=== PATIENT | female | born 1985 | race Caucasian/White ===

== ENCOUNTER 2017-08-21 10:58 | Emergency (ER) | payer BC, MEDICAID, OTHER ==
--- NOTE | 2017-08-21 11:26 | UC ---
Skin Complaint HPI - HPI Summary HPI Summary: 31 year old female with skin complaint.Pt states similar rash 06/2017 and treated for scabies. Pt states rash re-appeared last night. Pt states rash is on entire body. recently moved and been staying with a friend and only her daughter and her have the rash / bites. no fever. no other acute concerns. [ End ] - History of Current Complaint Time Seen by Provider: 08/21/17 11:25 Stated Complaint: RASH Hx Obtained From: Patient Onset/Duration: Gradual Onset Onset Severity: Moderate Current Severity: Moderate Alleviating Factor(s): OTC Meds, Antihistamines - Allergy/Home Medications Allergies/Adverse Reactions: Allergies Allergy/AdvReac Type Severity Reaction Status Date / Time Adhesive Tape Allergy Rash Verified 08/21/17 11:34 metoclopramide Allergy Anger/Memory Verified 08/21/17 11:34 Loss morphine Allergy Hives Verified 08/21/17 11:34 verapamil Allergy Diarrhea Verified 08/21/17 11:34 Home Medications: Home Medications Levonorgestrel (Iud) [Mirena IUD] 1 applic IU ONCE 08/21/17 [History Confirmed 08/21/17] ValACYclovir (*) [Valtrex 500 mg (*)] 1 tab PO BID PRN 08/21/17 [History Confirmed 08/21/17] Review of Systems Skin: Rash Is Patient Immunocompromised?: No All Other Systems Reviewed And Are Negative: Yes PMH/Surg Hx/FS Hx/Imm Hx Previously Healthy: Yes - Family History Known Family History: Negative: Cardiac Disease - Social History Occupation: Employed Full-time Lives: With Family Substance Use Type: Heroin Substance Use Comment - Amount & Last Used: not used since 2015 Smoking Status (MU): Light Every Day Tobacco Smoker Type: Cigarettes Have You Smoked in the Last Year: Yes Cessation Counseling: Patient Advised to Stop Physical Exam Triage Information Reviewed: Yes Appearance: Well-Appearing, No Pain Distress, Well-Nourished Vital Signs Reviewed: Yes ENT: Positive: Hearing grossly normal Neck: Positive: Supple Respiratory Exam: Normal Cardiovascular Exam: Normal Musculoskeletal Exam: Normal Neurological Exam: Normal Psychological Exam: Normal Skin: Positive: rashes - urticarial rash on the b/l upper extremity. also on the LE. no erythema. no discharge. no streaking. no eechymosis Course/Dx - Course Course Of Treatment: bed bugs? discussed monitoring for infection. to wash linens. patient states not using any drugs. appears coherent - Differential Diagnoses - Skin Complaint Differential Diagnoses: Contact Dermatitis, Impetigo, Local Allergic Reaction, Scabies - Diagnoses Provider Diagnoses: insect bites Discharge - Sign-Out/Discharge Documenting (check all that apply): Discharge - Discharge Plan Condition: Good Disposition: HOME Prescriptions: methylPREDNISolone [Medrol Dosepak 4 MG*] 0 mg PO .SEE EFRA INSTRUCTION #1 tab Patient Education Materials: Insect Bite or Sting (ED) Referrals: No Primary Care Phys,NOPCP [Primary Care Provider] - 3 Days - Billing Disposition and Condition Condition: GOOD Disposition: HOME
[2017-08-21 11:41] VITALS: BP 120/78
== END 2017-08-21 12:20 | disposition home or self-care (01) ==
LOC: UCCORT 10:58
DX: S40.862A Insect bite (nonvenomous) of left upper arm, initial encounter (principal); S40.861A Insect bite (nonvenomous) of right upper arm, initial encounter; S80.869A Insect bite (nonvenomous), unspecified lower leg, initial encounter; W57.XXXA Bitten or stung by nonvenomous insect and other nonvenomous arthropods, initial encounter; Y93.9 Activity, unspecified; Y92.009 Unspecified place in unspecified non-institutional (private) residence as the place of occurrence of the external cause; Z88.5 Allergy status to narcotic agent; Z88.8 Allergy status to other drugs, medicaments and biological substances; Z91.048 Other nonmedicinal substance allergy status; F17.210 Nicotine dependence, cigarettes, uncomplicated
CPT/HCPCS: 99202; G0463

== ENCOUNTER 2017-09-05 12:19 | Emergency (ER) | payer OTHER ==
[2017-09-05 13:54] VITALS: BP 122/62
--- NOTE | 2017-09-05 14:24 | UC ---
Skin Complaint HPI - HPI Summary HPI Summary: Patient has 1 week of worsening pain redness and tenderness in her left nipple. Does have a small abrasion / irritation on her nipple. She is currently breast-feeding. Patient has a history of MRSA - History of Current Complaint Chief Complaint: UCSkin Time Seen by Provider: 09/05/17 14:14 Stated Complaint: SKIN COMPLAINT Hx Obtained From: Patient Hx Last Menstrual Period: "Spotting now" ?: No Onset/Duration: Sudden Onset, Lasting Days - 7, Worse Since - getting worse daily Timing: Constant Onset Severity: Moderate Current Severity: Moderate Pain Intensity: 4 Pain Scale Used: 0-10 Numeric Location: Discrete - left nipple Character: Pain, Redness Aggravating Factor(s): Touch Alleviating Factor(s): Nothing Associated Signs & Symptoms: Positive: Tenderness - Allergy/Home Medications Allergies/Adverse Reactions: Allergies Allergy/AdvReac Type Severity Reaction Status Date / Time Adhesive Tape Allergy Rash Verified 09/05/17 13:49 metoclopramide Allergy Anger/Memory Verified 09/05/17 13:49 Loss morphine Allergy Hives Verified 09/05/17 13:49 verapamil Allergy Diarrhea Verified 09/05/17 13:49 Review of Systems Constitutional: Negative Skin: Rash - left nipple irratation Eyes: Negative ENT: Negative Respiratory: Negative Cardiovascular: Negative Gastrointestinal: Negative Genitourinary: Negative Motor: Negative Neurovascular: Negative Musculoskeletal: Negative, Other: - left breast painful and tender---no erythema or streaking Neurological: Negative Psychological: Negative Is Patient Immunocompromised?: No All Other Systems Reviewed And Are Negative: Yes PMH/Surg Hx/FS Hx/Imm Hx Previously Healthy: Yes - Surgical History Surgical History: Yes Surgery Procedure, Year, and Place: C-Secton; ENT; Appy; Right Hand Tendon Reconstruction - Family History Known Family History: Negative: Cardiac Disease - Social History Occupation: Employed Full-time Lives: With Family Alcohol Use: None Substance Use Type: None Substance Use Comment - Amount & Last Used: not used since 2015 Smoking Status (MU): Light Every Day Tobacco Smoker Type: Cigarettes Amount Used/How Often: 1/4 PPD Length of Time of Smoking/Using Tobacco: Since Age 9 Have You Smoked in the Last Year: Yes Physical Exam Triage Information Reviewed: Yes Appearance: Well-Appearing, No Pain Distress, Well-Nourished Vital Signs: Initial Vital Signs Temp 98 F 09/05/17 13:47 Pulse 84 09/05/17 13:47 Resp 16 09/05/17 13:47 BP 122/62 09/05/17 13:47 Pulse Ox 100 09/05/17 13:47 Vital Signs Reviewed: Yes Eye Exam: Normal Eyes: Positive: Conjunctiva Clear ENT Exam: Normal ENT: Positive: Normal ENT inspection, Hearing grossly normal, Pharynx normal, TMs normal. Negative: Nasal congestion, Tonsillar swelling, Tonsillar exudate, Trismus, Muffled voice, Hoarse voice, Dental tenderness, Sinus tenderness Dental Exam: Normal Neck exam: Normal Neck: Positive: Supple, Nontender, No Lymphadenopathy Respiratory Exam: Normal Respiratory: Positive: Chest non-tender, Lungs clear, Normal breath sounds, No respiratory distress, No accessory muscle use Cardiovascular Exam: Normal Cardiovascular: Positive: RRR, No Murmur, Pulses Normal, Brisk Capillary Refill Musculoskeletal Exam: Normal Musculoskeletal: Positive: Strength Intact, ROM Intact, No Edema Neurological Exam: Normal Neurological: Positive: Alert, Muscle Tone Normal Psychological Exam: Normal Skin Exam: Other Skin: Positive: Other - left nipple pain and irratated skin Course/Dx - Course Course Of Treatment: Plan will be to start patient on doxycycline patient advised she cannot breast-feed while on this medication and for several days afterward patient verbalizes understanding. Patient states she will be discontinuing breast-feeding is the child's a year plus now anyway. Patient will continue to use warm compresses 15 minutes every 1-2 hours patient will follow up with surgeon this week and go to the emergency department should anything acutely change - Diagnoses Provider Diagnoses: Cellulitis left nipple left breast Discharge - Sign-Out/Discharge Documenting (check all that apply): Discharge - Discharge Plan Condition: Stable Disposition: HOME Prescriptions: DOXYcycline CAP(*) [DOXYcycline 100MG CAP(*)] 100 mg PO BID #20 cap Patient Education Materials: Abscess (ED), Warm Compress or Soak (ED) Forms: *Work Release Referrals: Litzy Pinto MD [Medical Doctor] - 3 Days Additional Instructions: Use warm compresses to the breast every hour or 2 for 15 minutes at a time. Do not breast feed or use the breast milk while on the antibiotic. Follow up with Dr. Pinto this week and call and ask for an appointment in the [place] office - Billing Disposition and Condition Condition: STABLE Disposition: HOME
== END 2017-09-05 14:33 | disposition home or self-care (01) ==
LOC: UCCORT 12:19
DX: N61.0 Mastitis without abscess (principal); F17.210 Nicotine dependence, cigarettes, uncomplicated; Z86.14 Personal history of Methicillin resistant Staphylococcus aureus infection; Z88.5 Allergy status to narcotic agent; Z88.8 Allergy status to other drugs, medicaments and biological substances
CPT/HCPCS: 99212; G0463

== ENCOUNTER 2018-01-09 17:09 | Emergency (ER) | payer OTHER ==
[2018-01-09 17:39] VITALS: BP 134/75
--- NOTE | 2018-01-09 18:14 | UC ---
Rectal Pain HPI - HPI Summary HPI Summary: C/O rectal itching since last night with constipation today. [place] like something crawling on the anus. Recent URI. Hoarse voice with cough - History Of Current Complaint Chief Complaint: UCGeneralIllness Stated Complaint: SKIN ISSUE Hx Obtained From: Patient Hx Last Menstrual Period: 01/07/18-IUD ?: No Onset/Duration: Sudden Onset, Lasting Days - 1 Severity Initially: Mild Severity Currently: Mild Pain Intensity: 0 Location Of Pain: (No Pain), Anal - itching Character: Itching Aggravating Factor(s): Bowel Movement Associated Signs And Symptoms: Positive: Constipation, Other - some tenismus Related History: Other - Home cat with worms. - Allergies/Home Medications Allergies/Adverse Reactions: Allergies Allergy/AdvReac Type Severity Reaction Status Date / Time Adhesive Tape Allergy Rash Verified 01/09/18 17:34 metoclopramide Allergy Anger/Memory Verified 01/09/18 17:34 Loss morphine Allergy Hives Verified 01/09/18 17:34 verapamil Allergy Diarrhea Verified 01/09/18 17:34 PMH/Surg Hx/FS Hx/Imm Hx Previously Healthy: Yes - Surgical History Surgical History: Yes Surgery Procedure, Year, and Place: C-Secton; ENT; Appy; Right Hand Tendon Reconstruction - Family History Known Family History: Positive: Hypertension, Diabetes Negative: Cardiac Disease - Social History Occupation: Employed Full-time Lives: With Family Alcohol Use: None Substance Use Type: None Substance Use Comment - Amount & Last Used: not used since 2015 Smoking Status (MU): Light Every Day Tobacco Smoker Type: Cigarettes Amount Used/How Often: 1/2 PPD Length of Time of Smoking/Using Tobacco: Since Age 9 Have You Smoked in the Last Year: Yes Cessation Counseling: Patient Advised to Stop - Immunization History Most Recent Tetanus Shot: UTD Review of Systems Respiratory: Cough Gastrointestinal: Abdominal Pain Is Patient Immunocompromised?: No All Other Systems Reviewed And Are Negative: Yes Physical Exam Triage Information Reviewed: Yes Appearance: Well-Appearing, No Pain Distress, Obese Vital Signs: Initial Vital Signs Temp 97.6 F 01/09/18 17:34 Pulse 86 01/09/18 17:34 Resp 16 01/09/18 17:34 BP 134/75 01/09/18 17:34 Pulse Ox 99 01/09/18 17:34 Vital Signs Reviewed: Yes Eyes: Positive: Conjunctiva Clear ENT: Positive: Pharynx normal, TMs normal Neck exam: Normal Respiratory Exam: Normal Cardiovascular Exam: Normal Abdomen Description: Positive: No Organomegaly. Negative: Nontender - mild tenderness epigastric/ suprapubic and LLQ, McBurney's Point Tenderness, Peritoneal Signs Bowel Sounds: Positive: Present Musculoskeletal Exam: Normal Neurological Exam: Normal Psychological Exam: Normal Skin Exam: Normal Rectal Pain Course/Dx - Differential Dx/Diagnosis Differential Diagnosis/HQI/PQRI: Hemorrhoid(s), Pilonial Cyst, Pruritis Ani Provider Diagnoses: Pruritis ani. URI Discharge - Sign-Out/Discharge Documenting (check all that apply): Patient Departure - Discharge Plan Condition: Stable Disposition: HOME Patient Education Materials: Pinworm Infection (ED), Gas and Bloating (ED), Abdominal Pain (ED) Referrals: No Primary Care Phys,NOPCP [Primary Care Provider] - Additional Instructions: Smoking Cessation Tricks. 1. Cut down by 1 cigarette per day every 2-3 days. Write the number of smokes for that day on the calendar. 2. Identify triggers to smoking: after meals, on the phone, in the car, with coffee, on breaks at work, etc. 3. Formulate a plan with a behavior to replace the smoking. Fireballs in the car , doodle pad on the phone, flavored creamer for the coffee, go for a walk after a meal or on break at work. 4. For stress smokes do deep breathing relaxation. Breath deep in through the nose hold the breath in for a few seconds then breath out slowly through the mouth. Please place cellophane tape over the anus at bedtime and remove in the morning and put in the specimen cup. - Billing Disposition and Condition Condition: STABLE Disposition: Home
== END 2018-01-09 18:55 | disposition home or self-care (01) ==
LOC: UCCORT 17:09
DX: L29.0 Pruritus ani (principal); J06.9 Acute upper respiratory infection, unspecified; Z88.8 Allergy status to other drugs, medicaments and biological substances; Z88.5 Allergy status to narcotic agent; F17.210 Nicotine dependence, cigarettes, uncomplicated
CPT/HCPCS: 87172; 99211; G0463

== ENCOUNTER 2018-05-16 07:44 | Emergency (ER) | payer OTHER ==
[2018-05-16 08:12] VITALS: BP 140/77
--- NOTE | 2018-05-16 08:16 | UC ---
Lower Extremity/Ankle HPI - HPI Summary HPI Summary: pt with right LE edema and discomfort right ankle. Pain started medial ankle 1 week ago - no memory injury. improved pain with motrin, worse with walking. pt with chronic paresthesia. no erythema, fever. no knee, hip pain + limping Pt's medications reviewed this visit - History of Current Complaint Chief Complaint: UCLowerExtremity Stated Complaint: RIGHT LEG COMPLAINT Time Seen by Provider: 05/16/18 08:15 Hx Obtained From: Patient Hx Last Menstrual Period: 05/02/18 Onset/Duration: Gradual Onset Pain Intensity: 3 - Allergies/Home Medications Allergies/Adverse Reactions: Allergies Allergy/AdvReac Type Severity Reaction Status Date / Time Adhesive Tape Allergy Rash Verified 05/16/18 08:02 metoclopramide Allergy Anger/Memory Verified 05/16/18 08:02 Loss morphine Allergy Hives Verified 05/16/18 08:02 verapamil Allergy Diarrhea Verified 05/16/18 08:02 Home Medications: Home Medications Lurasidone(*) [Latuda] 40 mg PO DAILY 05/16/18 [History Confirmed 05/16/18] Varenicline (NF) [Chantix 1 MG TAB (NF)] 1 mg PO BID 05/16/18 [History Confirmed 05/16/18] traZODone TAB* [Desyrel TAB*] 50 mg PO BEDTIME 05/16/18 [History Confirmed 05/16] PMH/Surg Hx/FS Hx/Imm Hx Previously Healthy: Yes - Surgical History Surgical History: Yes Surgery Procedure, Year, and Place: C-Secton; ENT; Appy; Right Hand Tendon Reconstruction - Family History Known Family History: Positive: Hypertension, Diabetes, Non-Contributory Negative: Cardiac Disease - Social History Occupation: Employed Full-time Lives: With Family Alcohol Use: None Substance Use Type: None Substance Use Comment - Amount & Last Used: not used since 2015 Smoking Status (MU): Light Every Day Tobacco Smoker Type: Cigarettes Amount Used/How Often: 5 CIGS PER DAY Length of Time of Smoking/Using Tobacco: Since Age 9 Have You Smoked in the Last Year: Yes - Immunization History Most Recent Tetanus Shot: UTD Review of Systems All Other Systems Reviewed And Are Negative: Yes Skin: Positive: Negative Musculoskeletal: Positive: Other: - left ankle Physical Exam - Summary Physical Exam Summary: Vital Signs Reviewed: Yes A+Ox3, no distress Eyes: Conjunctiva Clear ENT: Hearing grossly normal Neck: Positive: Supple Respiratory: Positive: No respiratory distress, No accessory muscle use Cardiovascular: 2+ DP, PT CBT< 2 sec Musculoskeletal Exam: + SLE + flex/ext knee, ankle discomfort medial left ankle with direct palp inferior, anterior malleolus mild discomfort right distal calf mild edema, no open wound, no tense Neurological: Positive: Alert, + sensation throughout Psychological: Positive: Normal Response To Family Skin: Positive: no rash, no ecchymosis Triage Information Reviewed: Yes Vital Signs: Initial Vital Signs Temp 98.7 F 05/16/18 08:04 Pulse 72 05/16/18 08:04 Resp 16 05/16/18 08:04 BP 140/77 05/16/18 08:04 Pulse Ox 98 05/16/18 08:04 Diagnostics - Radiology No standard instances Radiology Interpretation Completed By: Radiologist - Patient Name: ISAIAH MORENO Medical Record#: [id number] Ordering Physician: Casie Simmons MD Acct.#: [id number] : 1985 Age: 32 Sex: F Location: [facility] Exam Date: 05/16/1817 ADM Status: REG ER Order Information: VL LOWER EXT VEINS RIGHT Accession Number: [id number] CPT: 79236 HISTORY: leg swelling, discoloration COMPARISONS : None relevant TECHNIQUE: Multiple transverse and longitudinal ultrasound images were obtained of the right lower extremity from the level of the common femoral vein inferiorly through to the infrapopliteal veins using grayscale, color Doppler, and spectral Doppler imaging with and without compression and with augmentation. Comparison images were obtained of the contralateral common femoral vein. FINDINGS: VEINS: The venous system of the right lower extremity is compressible throughout its course, with normal flow on color Doppler imaging and normal response to augmentation on spectral Doppler imaging. SOFT TISSUES: Unremarkable. OTHER FINDINGS: None. IMPRESSION: NO RIGHT LOWER EXTREMITY DEEP VEIN THROMBOSIS Patient Name: ISAIAH MORENO Medical Record#: [id number] Ordering Physician: Casie Simmons MD Acct.#: [id number] : 1985 Age: 32 Sex: F Location: [facility] Exam Date: 05/16/18 0902 ADM Status: REG ER Order Information: ANKLE RIGHT 3+VWS Accession Number: [id number] CPT: 42440 Indication: Right ankle pain. 3 views of the right ankle demonstrates no fracture or dislocation. Ankle mortise is intact. No other bone or joint abnormality is identified. IMPRESSION: No fracture of the right ankle is noted. < Electronically signed by Sandy Thomas MD in OV> 05/16/18917 Dictated By: Sandy Thomas MD Dictated Date/Time: 05/16/18917 Transcribed Date/Time: 05/16/18916 Copy to: CC:Casie Simmons MD; No Primary Care Phys,[facility] [address] [place] [address] ph ([phone]) ph ([phone]) ph ([phone]) This report is only to be considered final once signed by the Provider(s) as displayed in the "<Electronically Signed by >" field (s). Absence of a signature indicates the report is in a draft status and still needs to be finalized. In the event this document was created by someone other than the signing Provider, the individual initiating the document will be listed in the "Entered by:" or "Dictated by:" delgadillo. 1 of 1 <Electronically signed by Ruiz Ku MD in OV> 05/16/18840 Dictated By: Ruiz Ku MD Dictated Date/Time: 05/16 Transcribed Date/Time: 05/16/18840 Copy to: CC:Casie Simmons MD; No Primary Care Phys,[facility] [address] [place] [id number] [place], [place] [id number] [place] [address] ph ) ph ([phone]) ph ([phone]) This report is only to be considered final once signed by the Provider(s) as displayed in the "< Electronically Signed by >" field (s). Absence of a signature indicates the report is in a draft status and still needs to be finalized. In the event this document was created by someone other than the signing Provider, the individual initiating the document will be listed in the "Entered by:" or "Dictated by:" delgadillo. 1 of 1 Lower Extremity Course/Dx - Course Course Of Treatment: Pt wth left ankle pain x 1 week not with extension to left distal calf no crepitus + limp pain improves with motrin. will check US for DVT, imaging. if neg, splint, oriana. crutches. elevate. sports med f.u. return precautions. slight elevated BP - recommend f/u with pcp - Differential Dx/Diagnosis Provider Diagnosis: Right ankle sprain Discharge - Sign-Out/Discharge Documenting (check all that apply): Patient Departure All imaging exams completed and their final reports reviewed: Yes - Discharge Plan Condition: Stable Disposition: HOME Patient Education Materials: Ankle Sprain (ED), Crutch Instructions (ED) Forms: *Work Release Referrals: [facility] [Provider Group] No Primary Care Phys,NOPCP [Primary Care Provider] - Additional Instructions: -wear oriana wrap for comfort and support -apply ice (20 min at a time) every 2-3 hours for the next 2 days -use crutches until you can walk normally without a limp -Elevate your leg - this will help with swelling and pain - Alternate ibuprofen (advil, Motrin) 600mg and tylenol every 3 hours for pain. Take with food. Do NOT take for more than 4-5 days -Contact the sports medicine office today to arrange a follow-up appointment later this week. Contact your doctor or return with questions or concerns - Billing Disposition and Condition Condition: STABLE Disposition: Home
== END 2018-05-16 09:27 | disposition home or self-care (01) ==
LOC: UCCORT 07:44
DX: S93.401A Sprain of unspecified ligament of right ankle, initial encounter (principal); X58.XXXA Exposure to other specified factors, initial encounter; Y92.9 Unspecified place or not applicable; Y99.9 Unspecified external cause status; Z88.8 Allergy status to other drugs, medicaments and biological substances; Z88.5 Allergy status to narcotic agent; F17.210 Nicotine dependence, cigarettes, uncomplicated
CPT/HCPCS: 99213; G0463

== ENCOUNTER 2018-12-26 12:27 | Emergency (ER) | payer OTHER ==
[2018-12-26 13:30] VITALS: BP 117/104
--- NOTE | 2018-12-26 13:51 | UC ---
UC General HPI - HPI Summary HPI Summary: per triage,Pt had a cough last night, this morning pt woke up with a fever, sore throat, and white area on the back of her throat. [ End ] daughter sick with cold symptoms and a sore throat. - History of Current Complaint Chief Complaint: UCGeneralIllness Stated Complaint: ST Time Seen by Provider: 12/26/18 13:42 Hx Obtained From: Patient Hx Last Menstrual Period: depo Onset/Duration: Gradual Onset Timing: Constant Pain Intensity: 5 Associated Signs & Symptoms: Negative: Chest Pain, SOB - Allergy/Home Medications Allergies/Adverse Reactions: Allergies Allergy/AdvReac Type Severity Reaction Status Date / Time Adhesive Tape Allergy Rash Verified 12/26/18 13:30 metoclopramide Allergy Anger/Memory Verified 12/26/18 13:30 Loss morphine Allergy Hives Verified 12/26/18 13:30 verapamil Allergy Diarrhea Verified 12/26/18 13:30 Home Medications: Home Medications Atorvastatin* [Lipitor 10 MG*] 1 tab PO DAILY 12/26/18 [History Confirmed ] SUMAtriptan TAB* [Imitrex TAB*] 1 tab PO DAILY 12/26/18 [History Confirmed 12/26] Topiramate TAB(*) [Topamax 100 mg tab] 1 tab PO BID 12/26/18 [History Confirmed 12/26/18] PMH/Surg Hx/FS Hx/Imm Hx Endocrine History: Dyslipidemia Neurological History: Migraine - Surgical History Surgical History: Yes Surgery Procedure, Year, and Place: C-Secton; ENT; Appy; Right Hand Tendon Reconstruction - Family History Known Family History: Positive: Hypertension, Diabetes, Non-Contributory Negative: Cardiac Disease - Social History Lives: With Family Alcohol Use: None Substance Use Type: None Substance Use Comment - Amount & Last Used: not used since 2016 Smoking Status (MU): Light Every Day Tobacco Smoker Type: Cigarettes Amount Used/How Often: 1/2 ppd Length of Time of Smoking/Using Tobacco: Since Age 9 Have You Smoked in the Last Year: Yes - Immunization History Most Recent Tetanus Shot: UTD Review of Systems All Other Systems Reviewed And Are Negative: Yes ENT: Positive: Sore Throat, Sinus Congestion Respiratory: Positive: Cough Physical Exam Triage Information Reviewed: Yes Appearance: Well-Appearing Vital Signs: Initial Vital Signs Temp 99.2 F 12/26/18 13:25 Pulse 88 12/26/18 13:25 Resp 16 12/26/18 13:25 BP 117/104 12/26/18 13:25 Pulse Ox 98 12/26/18 13:25 Vital Signs Reviewed: Yes Eyes: Positive: Conjunctiva Clear ENT: Positive: Pharyngeal erythema - slight, Nasal congestion, TMs normal, Uvula midline. Negative: Nasal drainage, Tonsillar swelling, Tonsillar exudate , Trismus, Muffled voice, Hoarse voice Neck: Positive: Supple, Tenderness @ - peritonsil, Enlarged Nodes @ - peritonsilar Respiratory: Positive: Lungs clear, Normal breath sounds, No respiratory distress Cardiovascular: Positive: RRR, No Murmur Abdomen Description: Positive: Nontender Musculoskeletal: Positive: ROM Intact Neurological: Positive: Alert Psychological: Positive: Age Appropriate Behavior Skin Exam: Normal Skin: Negative: Rashes Diagnostics - Laboratory Lab Results: rapid strep=negative Course/Dx - Differential Dx - Multi-Symptom Differential Diagnoses: Other - rapid strep=neg, antibiotics not indicated. - Diagnoses Provider Diagnosis: URI (upper respiratory infection), Pharyngitis Discharge - Sign-Out/Discharge Documenting (check all that apply): Patient Departure All imaging exams completed and their final reports reviewed: No Studies - Discharge Plan Condition: Stable Disposition: HOME Patient Education Materials: Upper Respiratory Infection (DC), Pharyngitis (ED) Referrals: Keron Siu MD [Primary Care Provider] - Additional Instructions: FOLLOW UP IF NOT BETTER IN 5-7 DAYS OR SOONER IF WORSE. - Billing Disposition and Condition Condition: STABLE Disposition: Home
== END 2018-12-26 14:15 | disposition home or self-care (01) ==
LOC: UCCORT 12:27
DX: J06.9 Acute upper respiratory infection, unspecified (principal); J02.9 Acute pharyngitis, unspecified; E78.5 Hyperlipidemia, unspecified; G43.909 Migraine, unspecified, not intractable, without status migrainosus; F17.210 Nicotine dependence, cigarettes, uncomplicated
CPT/HCPCS: 87651; 99211; G0463

== ENCOUNTER 2019-09-21 10:59 | Emergency (ER) | payer OTHER ==
[2019-09-21 11:16] VITALS: BP 112/70
== END 2019-09-21 11:42 | disposition home or self-care (01) ==
LOC: UCCORT 10:59